=== PATIENT | male | born 1950 | race Hispanic/Latino ===

== ENCOUNTER 2024-09-11 12:36 | Emergency (ER) | payer MEDICARE ==
[~2024-09-11] VITALS: Ht 167.6 cm; Wt 99.8 kg
[2024-09-11] MEDS: KETOROLAC TROMETHAMINE 30 MG/ML VIAL IM STA (14:17)
[2024-09-11 15:52] VITALS: PULSE 74; RESP 16; TEMP 98.7; O2SAT 99
== END 2024-09-11 15:55 | disposition home or self-care (01) ==
LOC: FSED 13:24
DX: M25.562 Pain in left knee (principal); X50.1XXA Overexertion from prolonged static or awkward postures, initial encounter; Y93.01 Activity, walking, marching and hiking; Y92.89 Other specified places as the place of occurrence of the external cause
CPT/HCPCS: 73562; 99284; J1885